=== PATIENT | male | born 1990 | race Native Hawaiian/Other Pacific Islander ===

== ENCOUNTER 2016-10-28 10:44 | Emergency (ER) | payer OTHER ==
[~2016-10-28] VITALS: Ht 175.3 cm; Wt 68.0 kg
[2016-10-28 11:20] LABS: PLATELET COUNT 321 K/uL (142-355)
[2016-10-28 11:33] LABS: POTASSIUM 3.7 mmol/L (3.6-5.2); SODIUM 136 mmol/L (136-145)
[2016-10-28 12:52] VITALS: BP 133/90; TEMP 98.4
== END 2016-10-28 12:52 | disposition home or self-care (01) ==
LOC: ED 10:44
PROVIDERS: Family Medicine
DX: R10.9 Unspecified abdominal pain (principal); K92.0 Hematemesis; I10 Essential (primary) hypertension; M94.0 Chondrocostal junction syndrome [Tietze]; K22.6 Gastro-esophageal laceration-hemorrhage syndrome
CPT/HCPCS: 36415; 80053; 80307; 81000; 82150; 83690; 85027; 93005; 96360; 96361; 99284; G0479

== ENCOUNTER 2016-11-08 09:04 | Emergency (ER) | payer OTHER ==
[~2016-11-08] VITALS: Ht 175.3 cm; Wt 67.1 kg
[2016-11-08 09:15] VITALS: TEMP 99.3
[2016-11-08 09:34] LABS: PLATELET COUNT 305 K/uL (142-355)
[2016-11-08 09:55] LABS: POTASSIUM 3.8 mmol/L (3.6-5.2); SODIUM 134 mmol/L (136-145)
[2016-11-08 10:44] VITALS: BP 138/78
== END 2016-11-08 10:45 | disposition home or self-care (01) ==
LOC: ED 09:04
DX: L03.113 Cellulitis of right upper limb (principal); T63.331A Toxic effect of venom of brown recluse spider, accidental (unintentional), initial encounter
CPT/HCPCS: 36415; 80053; 85027; 96365; 99284; J0696

== ENCOUNTER 2018-09-04 13:19 | Outpatient (CLI) | payer OTHER | END 2018-09-04 13:22 | disposition short-term general hospital (02) | LOC: AMB 13:19 | DX: R07.89 Other chest pain (principal); F15.10 Other stimulant abuse, uncomplicated | CPT/HCPCS: A0425; A0427 ==

== ENCOUNTER 2018-09-04 13:31 | Emergency (ER) | payer OTHER ==
[~2018-09-04] VITALS: Ht 175.3 cm; Wt 63.5 kg
[2018-09-04 13:45] VITALS: BP 137/93; TEMP 100
[2018-09-04 13:56] LABS: PLATELET COUNT 492 K/uL (142-355)
[2018-09-04 14:04] LABS: POTASSIUM 3.7 mmol/L (3.6-5.2); SODIUM 141 mmol/L (136-145)
== END 2018-09-04 14:00 ==
LOC: ED 13:31
PROVIDERS: Family Medicine
DX: R07.89 Other chest pain (principal); F15.10 Other stimulant abuse, uncomplicated
CPT/HCPCS: 80053; 82550; 84484; 85027; 99283

== ENCOUNTER 2021-02-03 22:04 | Emergency (ER) | payer OTHER ==
[~2021-02-03] VITALS: Ht 175.3 cm; Wt 68.0 kg
[2021-02-03 22:10] VITALS: BP 145/95; TEMP 98.9
== END 2021-02-03 23:01 | disposition home or self-care (01) ==
LOC: ED 22:04
DX: S91.331A Puncture wound without foreign body, right foot, initial encounter (principal); W45.0XXA Nail entering through skin, initial encounter; Y92.89 Other specified places as the place of occurrence of the external cause
CPT/HCPCS: 90471; 90715; 99282

== ENCOUNTER 2021-09-02 23:49 | Emergency (ER) | payer OTHER ==
[~2021-09-02] VITALS: Ht 175.3 cm; Wt 87.1 kg
[2021-09-03 00:03] VITALS: BP 131/88; TEMP 97.7
== END 2021-09-03 02:36 | disposition home or self-care (01) ==
LOC: ED 23:49
DX: S30.0XXA Contusion of lower back and pelvis, initial encounter (principal); V43.62XA Car passenger injured in collision with other type car in traffic accident, initial encounter; Y92.89 Other specified places as the place of occurrence of the external cause
CPT/HCPCS: 99283; J1885